=== PATIENT | female | born 1990 | race Caucasian/White ===

== ENCOUNTER 2022-12-22 17:58 | Emergency (ER) | payer OTHER ==
[~2022-12-22] VITALS: Ht 172.7 cm; Wt 82.6 kg
[2022-12-22 18:08] VITALS: BP 110/75; PULSE 84; RESP 16; TEMP 98.2; O2SAT 100
[2022-12-22 18:47] LABS: APPEARANCE,URINE CLEAR (CLEAR); BILIRUBIN,URINE NEGATIVE (NEGATIVE); BLOOD, URINE 1+ (NEGATIVE); COLOR,URINE YELLOW (YELLOW); LEUKOCYTE ESTERASE ,URINE NEGATIVE (NEGATIVE); NITRITE, URINE NEGATIVE (NEGATIVE); PH,URINE 6.5 (5.0-9.0); UGLUCOSE NEGATIVE (NEGATIVE)
[2022-12-22 19:01] LABS: BASOPHILS # (AUTO) 0.1 K/uL (0.00-0.22); BASOPHILS % (AUTO) 0.9 % (0.0-2.0); EOSINOPHILS # (AUTO) 0.2 K/uL (0-0.4); EOSINOPHILS % (AUTO) 2.3 % (0.0-4.0); HEMOGLOBIN 10.2 g/dL (12.0-16.0); LYMPHOCYTES # (AUTO) 2.8 K/uL (2.5-16.5); LYMPHOCYTES % (AUTO) 40.7 % (20.5-51.1); MEAN CORPUSCULAR HEMOGLOBIN 32 pg (27-31); MEAN CORPUSCULAR HGB CONC 34 g/dL (33-37); MEAN CORPUSCULAR VOLUME 92.3 fL (80-94); MONOCYTES # (AUTO) 0.4 K/uL (0.8-1.0); NEUTROPHILS # (AUTO) 3.5 K/uL (1.8-7.7); NEUTROPHILS % (AUTO) 50.1 % (42.2-75.2); PLATELET COUNT (AUTO) 288 K/uL (140-450); RED BLOOD CELL COUNT(AUTO) 3.25 MIL/uL (4.20-5.40); RED CELL DISTRIBUTION WIDTH 14.5 % (11.6-13.7)
--- NOTE | 2022-12-22 20:10 | NUR ---
PT TAKEN TO BED 12
--- NOTE | 2022-12-22 20:45 | NUR ---
Ultrasound at bedside.
[2022-12-22] MEDS ORDERED: FERR325E14 PO (21:58)
[2022-12-22 22:13] VITALS: BP 110/75; PULSE 84; RESP 16; TEMP 98.2; O2SAT 100
--- NOTE | 2022-12-22 22:13 | NUR ---
Patient discharged with v/s stable. Written and verbal after care instructions given and explained. Patient alert, oriented and verbalized understanding of instructions. Ambulatory with steady gait. All questions addressed prior to discharge. ID band removed. Patient advised to follow up with PMD. Rx of FERROUS SULFATE given. Patient educated on indication of medication including possible reaction and side effects. Opportunity to ask questions provided and answered.
== END 2022-12-22 22:13 | disposition home or self-care (01) ==
LOC: MED 17:58
DX: O03.9 Complete or unspecified spontaneous abortion without complication (principal); O99.011 Anemia complicating pregnancy, first trimester; Z3A.10 10 weeks gestation of pregnancy; Z90.49 Acquired absence of other specified parts of digestive tract; Z98.890 Other specified postprocedural states; Z79.899 Other long term (current) drug therapy
CPT/HCPCS: 36415; 76817; 81001; 81025; 84702; 85025; 86900; 86901; 99284; Q0092

== ENCOUNTER 2023-01-22 17:14 | Inpatient (IN) | payer OTHER ==
[~2023-01-22] VITALS: Ht 172.7 cm; Wt 79.8 kg
[~2023-01-22 17:14] MED LIST: FERR325E14 PO
[2023-01-22 18:10] VITALS: BP 124/71; PULSE 76; RESP 20; TEMP 97; O2SAT 100
--- NOTE | 2023-01-22 19:13 | NUR ---
URINE OBTAINED PREG TEST NEG
[2023-01-22 19:29] LABS: BASOPHILS # (AUTO) 0.1 K/uL (0.00-0.22); BASOPHILS % (AUTO) 0.8 % (0.0-2.0); EOSINOPHILS # (AUTO) 0.2 K/uL (0-0.4); EOSINOPHILS % (AUTO) 2.4 % (0.0-4.0); HEMATOCRIT 34.5 % (36-48); HEMOGLOBIN 11.1 g/dL (12.0-16.0); LYMPHOCYTES # (AUTO) 3.2 K/uL (2.5-16.5); LYMPHOCYTES % (AUTO) 37.5 % (20.5-51.1); MEAN CORPUSCULAR HEMOGLOBIN 29 pg (27-31); MEAN CORPUSCULAR HGB CONC 32 g/dL (33-37); MONOCYTES # (AUTO) 0.5 K/uL (0.8-1.0); MONOCYTES % (AUTO) 6.4 % (1.7-9.3); NEUTROPHILS # (AUTO) 4.4 K/uL (1.8-7.7); NEUTROPHILS % (AUTO) 52.9 % (42.2-75.2); PLATELET COUNT (AUTO) 362 K/uL (140-450); RED BLOOD CELL COUNT(AUTO) 3.87 MIL/uL (4.20-5.40); RED CELL DISTRIBUTION WIDTH 13.6 % (11.6-13.7); WHITE BLOOD COUNT (AUTO) 8.4 K/uL (4.8-10.8)
[2023-01-22 19:49] LABS: ALBUMIN 3.4 g/dL (3.4-5.0); ANION GAP 13.9 (8-16); CARBON DIOXIDE 25.9 mmol/L (21-32); CREATININE 0.9 mg/dL (0.6-1.3); POTASSIUM 3.8 mmol/L (3.5-5.1); TOTAL BILIRUBIN 0.1 mg/dL (0.0-1.0)
[2023-01-22] MEDS ORDERED: KETOROLAC 30 MG/ML VIAL IM ONE (20:40)
[2023-01-22] MEDS ORDERED: PIPERACILLIN/TAZOBACTAM 3.375 GM in DEXTROSE 5% 50 ML IV ONE (22:30)
--- NOTE | 2023-01-22 22:31 | NUR ---
PT AMBULATED TO ER BED 2
--- NOTE | 2023-01-22 22:35 | NUR ---
32yo f cc of abdominal pain with nausea and diarrhea x 1 day. denies vomiting, trauma. denies pmhx, allergy. reports she had miscarriage last month. pt resting on bed. a/ox4. not in distress. chest rise and fall symmetrical. on monitor. oriented to call light and within reach. bed locked to lowest position. siderails x2 for safety. placed on moderate high back rest.
[2023-01-22] MEDS ORDERED: MORPHINE SULFATE 4 MG/ML SYR IVP ONE (22:40)
[2023-01-22] MEDS ORDERED: PIPERACILLIN/TAZOBACTAM 3.375 GM VIAL IV ONE (22:41)
[2023-01-22] MEDS ORDERED: ACETAMINOPHEN 325 MG TAB PO PRN (23:40)
[2023-01-22] MEDS ORDERED: ONDANSETRON 4 MG/2 ML VIAL IVP PRN (23:40)
[2023-01-22] MEDS ORDERED: LORazepam 1 MG TAB PO PRN (23:40)
[2023-01-22] MEDS ORDERED: POTASSIUM CHLORIDE 10 MEQ TABER PO PRN (23:40)
[2023-01-22] MEDS ORDERED: MAGNESIUM OXIDE 400 MG TAB PO PRN (23:40)
[2023-01-22] MEDS ORDERED: MORPHINE SULFATE 2 MG/ML SYR IVP PRN (23:40)
[2023-01-22] MEDS ORDERED: HYDROcodone/APAP 5/325 MG 1 TAB TAB PO PRN (23:40)
[2023-01-22] MEDS ORDERED: cefTRIAXone 1,000 MG VIAL ONE (23:51)
[2023-01-22] MEDS: DEXT 5% /NACL 0.9% 1,000 ML IV SCH (23:52)
--- NOTE | 2023-01-23 01:46 | NUR ---
pt resting on bed. a/ox4. not in distress. chest rise and fall symmetrical. on monitor.call light within reach. bed locked to lowest position. siderails x2 for safety. placed on moderate high back rest
--- NOTE | 2023-01-23 03:19 | NUR ---
SPOKE WITH DR. BAJWA. OK TO DOWNGRADE PT TO MED-SURG
--- NOTE | 2023-01-23 03:33 | NUR ---
Patient will be admitted to care of DR. BAJWA. Admited to [facility]. Will go to [facility]. Belongings list completed. Report to SACHI.
[2023-01-23 03:40] VITALS: BP 80/50; PULSE 84; RESP 18; TEMP 98.3; O2SAT 98
--- NOTE | 2023-01-23 03:40 | NUR ---
RECEIVED PT AAOX4 / WHEELCHAIR FROM ER , DENIES PAIN , NAUSEA , VOMITING AT THIS TIME , IV SITE INTACT AND PATENT , ADMISSION ASSESSMENT WILL BE DONE , REMINDS PT NPO EXCEPT MEDS , PT VERBALIZES UNDERSTANDING , ENSURE SAFETY , CALL LIGHT WITHIN SARA CH . BP RE CHECK 80/ 50 , NO COMPLAIN MADE . WILL REFER .
--- NOTE | 2023-01-23 04:30 | NUR ---
BP RE CHECK - NO COMPLAIN MADE , WAITING THE RESPONSE OF DR. CAMARA , CHARGE NURSE INFORMED .
--- NOTE | 2023-01-23 05:10 | NUR ---
BP RE CHECK 81/ , NO COMPLAIN MADE , WILL RE PAGE DR. CAMARA , CHARGE NURSE INFORMED
[2023-01-23 05:30] LABS: BASOPHILS # (AUTO) 0.1 K/uL (0.00-0.22); EOSINOPHILS # (AUTO) 0.2 K/uL (0-0.4); EOSINOPHILS % (AUTO) 2.4 % (0.0-4.0); HEMOGLOBIN 9.1 g/dL (12.0-16.0); LYMPHOCYTES # (AUTO) 3.4 K/uL (2.5-16.5); LYMPHOCYTES % (AUTO) 48.7 % (20.5-51.1); MEAN CORPUSCULAR HEMOGLOBIN 29 pg (27-31); MEAN CORPUSCULAR HGB CONC 33 g/dL (33-37); MEAN CORPUSCULAR VOLUME 90.1 fL (80-94); MONOCYTES # (AUTO) 0.5 K/uL (0.8-1.0); MONOCYTES % (AUTO) 6.5 % (1.7-9.3); NEUTROPHILS # (AUTO) 2.9 K/uL (1.8-7.7); NEUTROPHILS % (AUTO) 41.4 % (42.2-75.2); PLATELET COUNT (AUTO) 277 K/uL (140-450); RED BLOOD CELL COUNT(AUTO) 3.11 MIL/uL (4.20-5.40); RED CELL DISTRIBUTION WIDTH 13.6 % (11.6-13.7); WHITE BLOOD COUNT (AUTO) 7.1 K/uL (4.8-10.8)
[2023-01-23] MEDS ORDERED: NACL 0.9% 1,000 ML IV ONE (05:35)
--- NOTE | 2023-01-23 05:35 | NUR ---
ORDERED BY DR. CAMARA NSS 1 LITER BOLUS NOW - PER COMMAND OF CHARGE NURSE MAURICIO GIVE NSS 1 LITER BOLUS NOW AND SHE WILL PUT THE ORDER - WILL CARRY OUT .
[2023-01-23 05:58] LABS: ANION GAP 10.9 (8-16); CARBON DIOXIDE 26.4 mmol/L (21-32); CREATININE 0.9 mg/dL (0.6-1.3); POTASSIUM 3.3 mmol/L (3.5-5.1)
--- NOTE | 2023-01-23 06:00 | NUR ---
PENDING METRONIDAZOLE TIV , NSS BOLUS ONGOING , FOR CLOSELY WATCH .
--- NOTE | 2023-01-23 07:06 | NUR ---
receive the patient from the casino shift manager rn in rm 125BA admitting diagnosis acute appendicitis . will continue to monitor
--- NOTE | 2023-01-23 07:10 | NUR ---
BP RE CHECK /51 - PAGED DR. ROSE - I GAVE THE NAME ERMA DASH THE HE THE ONE WILL RECEIVE THE RETURN CALL OF EKTA DELGADO RN VERBALIZES UNDERSTANDING
--- NOTE | 2023-01-23 07:30 | NUR ---
PER PHARMACIST GIVE METRONIDAZOLE TIV NOW - WILL CARRY OUT .
[2023-01-23] MEDS: metroNIDAZOLE 500 MG/NS PREMIX 100 ML IV SCH ×3 (07:32→22:04)
--- NOTE | 2023-01-23 07:40 | NUR ---
ENDORSED PT BP 84 /52 - EKTA RN AWARE THAT PT IS ON CLOSELY WATCH , EKTA RN VERBALIZES UNDERSTANDING . PT IS AWAKE , NO COMPLAIN MADE , CALL LIGHT WITHIN REACH .
[2023-01-23] MEDS ORDERED: NACL 0.9% 1,000 ML IV SCH (07:50)
[2023-01-23 08:00] VITALS: BP 88/51; PULSE 58; RESP 18; TEMP 97.1; O2SAT 97
[2023-01-23 08:03] VITALS: PULSE 84
--- NOTE | 2023-01-23 08:57 | NUR ---
PATIENT HAS BEEN SCREENED AND CATEGORIZED LOW NUTRITION RISK. PATIENT WILL BE SEEN WITHIN 7 DAYS OF ADMISSION. 01/30/[address]
[2023-01-23] MEDS: DOCUSATE SODIUM 100 MG GELCAP PO SCH (09:00)
[2023-01-23] MEDS: ENOXAPARIN 40 MG/0.4 ML SYR SUBQ SCH (09:11)
[2023-01-23] MEDS: DEXT 5% /NACL 0.9% 1,000 ML IV SCH (12:00)
--- NOTE | 2023-01-23 12:30 | NUR ---
Md collazo surgeon made rounds . read the results of computed tomography of the abdomen and pelvis recommended antibiotic therapy before invasive procedure
--- NOTE | 2023-01-23 12:30 | NUR ---
Md Finch prescribe clear liquid diet
--- NOTE | 2023-01-23 13:16 | NUR ---
DC PLANNING A 5O YEAR OLD FEMALE PATIENT ADMITTED IN MED SURG FOR SEVERE RIGHT LOWER QUADRANT ABDOMINAL PAIN 1 DAY SMELTER CHARGER.PATIENT HAS NO SIGNIFICANT MEDICAL HX.CT SHOWS NON PERFORATED APPENDICITIS.CASE DISCUSSED BY ER TO GEN SURGERY,.ON ROCEPHIN AND FLAGYL.CN TO FOLLOW UP CX WITH .CM TO FOLLOW. Addendum: 01/25/23 at 1225 by DAWIT EDMONDS CM DC PLANNING PATIENT IS ALERT AND ORIENTED.S/P LAPAROSCOPIC EXTENSIVE LYSIS OF ADHESIONS AND APPENDECTOMY LAST NIGHT. ON ROCEPSANDHYA AND FLAGYL.HIDA SCAN REQUESTED DUE TO REPEAT CT ANGIOGRAM ABDOMEN/PELVIS THAT SHOWS POSSIBLE CHOLECYSTITIS .CM TO FOLLOW
[2023-01-23 16:00] VITALS: BP 100/56; PULSE 59; RESP 18; TEMP 97.1; O2SAT 97
--- NOTE | 2023-01-23 18:51 | NUR ---
will endorse to night supervisor rn for continuity of care . for monitoring for acute appendicitis . for antibiotics . no invasive procedure at this time
[2023-01-23 20:00] VITALS: PULSE 75; RESP 18; O2SAT 98
--- NOTE | 2023-01-23 23:00 | NUR ---
c/o pain , bp 110/60 , rr 18 , o2 sat 98 % , hr 66 - will medicate
[2023-01-24] VITALS: BP 112/60; PULSE 60; RESP 18; TEMP 98.5; O2SAT 98
--- NOTE | 2023-01-24 | NUR ---
rounds , no s/sx of acute distress noted , will cont. to monitor
[2023-01-24] MEDS: DEXT 5% /NACL 0.9% 1,000 ML IV SCH ×2 (01:17→12:31)
--- NOTE | 2023-01-24 02:00 | NUR ---
rounds , no complain made , will cont. to monitor
--- NOTE | 2023-01-24 04:00 | NUR ---
rounds no s/sx of acute distress noted , will cont. to monitor
[2023-01-24 05:28] LABS: BASOPHILS # (AUTO) 0.1 K/uL (0.00-0.22); BASOPHILS % (AUTO) 0.8 % (0.0-2.0); EOSINOPHILS # (AUTO) 0.3 K/uL (0-0.4); EOSINOPHILS % (AUTO) 4.4 % (0.0-4.0); HEMATOCRIT 28.7 % (36-48); HEMOGLOBIN 9.3 g/dL (12.0-16.0); LYMPHOCYTES % (AUTO) 43.4 % (20.5-51.1); MEAN CORPUSCULAR HEMOGLOBIN 29 pg (27-31); MEAN CORPUSCULAR HGB CONC 33 g/dL (33-37); MEAN CORPUSCULAR VOLUME 89.4 fL (80-94); MONOCYTES # (AUTO) 0.4 K/uL (0.8-1.0); MONOCYTES % (AUTO) 6.1 % (1.7-9.3); NEUTROPHILS # (AUTO) 3.2 K/uL (1.8-7.7); NEUTROPHILS % (AUTO) 45.3 % (42.2-75.2); PLATELET COUNT (AUTO) 289 K/uL (140-450); RED BLOOD CELL COUNT(AUTO) 3.21 MIL/uL (4.20-5.40); RED CELL DISTRIBUTION WIDTH 13.5 % (11.6-13.7)
[2023-01-24 05:45] LABS: ANION GAP 11.2 (8-16); CARBON DIOXIDE 22.7 mmol/L (21-32); CREATININE 0.7 mg/dL (0.6-1.3); POTASSIUM 3.9 mmol/L (3.5-5.1)
--- NOTE | 2023-01-24 06:00 | NUR ---
awake , no complain made , will cont. to monitor , call mike asencio .
[2023-01-24] MEDS: metroNIDAZOLE 500 MG/NS PREMIX 100 ML IV SCH ×3 (06:28→21:00)
[2023-01-24 08:00] VITALS: BP 98/49; PULSE 65; RESP 18; TEMP 97.8; O2SAT 98
--- NOTE | 2023-01-24 08:00 | NUR ---
endorsed for cont. of care , call light within reach .
--- NOTE | 2023-01-24 08:30 | NUR ---
receive the patient from the charge nurse Chasity in rm 125A admitting diagnosis of acute appendicitis . for antibiotic therapy . will continue to monitor
--- NOTE | 2023-01-24 08:30 | NUR ---
receive the patient from Chasity charge nurse in rm 115 admitting diagnosis bilateral lower extremity cellulitis . for antibiotics and pain mgt . 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 will continue to monitor Addendum: 01/24/23 at 1717 by MALENA BUSTAMANTE RN wrong patient
[2023-01-24 09:00] VITALS: PULSE 73; RESP 20; O2SAT 99
[2023-01-24] MEDS: ENOXAPARIN 40 MG/0.4 ML SYR SUBQ SCH (10:21)
[2023-01-24] MEDS: DOCUSATE SODIUM 100 MG GELCAP PO SCH (10:21)
[2023-01-24 16:00] VITALS: BP 97/50; PULSE 63; RESP 18; TEMP 98; O2SAT 98
--- NOTE | 2023-01-24 18:10 | NUR ---
spoken with Md Finch re appendectomy . made pre operative checklist . made pre operative teaching with patient
--- NOTE | 2023-01-24 19:09 | NUR ---
will endorse to shift foreman rn for continuity of care . for appendectomy with Md Finch
--- NOTE | 2023-01-24 19:10 | NUR ---
will endorse to production supervisor off shift rn for continuity of care . for MRCP tomorrow in [facility] Addendum: 01/26/23 at 1350 by MALENA BUSTAMANTE RN WRONG PATIENT
[2023-01-24 20:00] VITALS: PULSE 61; RESP 18; O2SAT 96
[2023-01-24] MEDS ORDERED: BUPIVACAINE-MPF/EPI 0.25% 10 ML VIAL INJ ONE (20:52)
[2023-01-24] MEDS ORDERED: ONDANSETRON 4 MG/2 ML VIAL ONE (21:00)
[2023-01-24] MEDS ORDERED: DEXAMETHASONE 4 MG/ML VIAL ONE ×2 (21:00→21:19)
[2023-01-24] MEDS ORDERED: SUCCINYLCHOLINE CHLORIDE 200 MG/10 ML VIAL IVP ONE ×2 (21:00→21:20)
[2023-01-24] MEDS ORDERED: KETOROLAC 30 MG/ML VIAL ONE ×2 (21:00→21:19)
[2023-01-24] MEDS ORDERED: SUGAMMADEX SODIUM 200 MG/2 ML VIAL IV ONE ×2 (21:00→21:32)
[2023-01-24] MEDS ORDERED: fentaNYL citrate 0.05 MG/ML - 50mL vial IV ONE (21:00)
[2023-01-24] MEDS ORDERED: ROCURONIUM 50 MG/5 ML VIAL IV ONE ×2 (21:00→21:19)
[2023-01-24] MEDS ORDERED: HYDROmorphone 1 MG/ML AMP ONE (21:00)
[2023-01-24] MEDS ORDERED: DEFEROXAMINE 500 MG VIAL ONE (21:00)
[2023-01-24] MEDS ORDERED: PROPOFOL 200 MG/20 ML VIAL IV ONE ×2 (21:00→21:20)
[2023-01-24] MEDS ORDERED: fentaNYL citrate 0.05 MG/ML VIAL ONE (21:27)
[2023-01-24] MEDS ORDERED: HYDROmorphone PFS 2 MG/ML SYR ONE ×2 (21:33→22:37)
[2023-01-24] MEDS: HYDROmorphone 1 MG/ML AMP IVP PRN ×2 (22:40→22:50)
--- NOTE | 2023-01-24 23:00 | NUR ---
BACK FROM PACU - WILL CONT. TO MONITOR , AROUSABLE , NO S/SX OF ACUTE DISTRESS NOTED AT THIS TIME , AAOX4 .
--- NOTE | 2023-01-24 23:15 | NUR ---
BP 100 / 60 , RR 18 , O2 SAT 99 % , KS 60 , T 98.0 F , AAOX4 , 0 PAIN .
[2023-01-25] VITALS: BP 108/60; PULSE 61; RESP 18; TEMP 98.3; O2SAT 94
--- NOTE | 2023-01-25 | NUR ---
BP 100 /62 , NC 66 , RR 18 , O2 SAT 99 % - 0 PAIN .
--- NOTE | 2023-01-25 00:30 | NUR ---
BP 100 / 61 , OH 59 , RR 18 , O2 SAT 100 % , 0 PAIN
[2023-01-25] MEDS: DEXT 5% /NACL 0.9% 1,000 ML IV SCH ×2 (01:06→14:55)
--- NOTE | 2023-01-25 04:00 | NUR ---
AWAKE , NO S/SX OF ACUTE DISTRESS NOTED , WILL CONT. TO MONITOR
--- NOTE | 2023-01-25 05:00 | NUR ---
WALKS TO THE RESTROOM , W/O DIZZINESS , NO COMPLAIN AT THIS TIME , VOIDED FREELY , WILL CONT. TO MONITOR .
[2023-01-25] MEDS: metroNIDAZOLE 500 MG/NS PREMIX 100 ML IV SCH ×2 (05:32→13:24)
[2023-01-25 05:56] LABS: BASOPHILS # (AUTO) 0.1 K/uL (0.00-0.22); BASOPHILS % (AUTO) 0.6 % (0.0-2.0); HEMATOCRIT 31.4 % (36-48); LYMPHOCYTES # (AUTO) 0.6 K/uL (2.5-16.5); LYMPHOCYTES % (AUTO) 7.4 % (20.5-51.1); MEAN CORPUSCULAR HEMOGLOBIN 29 pg (27-31); MEAN CORPUSCULAR HGB CONC 32 g/dL (33-37); MEAN CORPUSCULAR VOLUME 89.9 fL (80-94); MONOCYTES # (AUTO) 0.1 K/uL (0.8-1.0); MONOCYTES % (AUTO) 1.5 % (1.7-9.3); NEUTROPHILS # (AUTO) 7.9 K/uL (1.8-7.7); NEUTROPHILS % (AUTO) 90.5 % (42.2-75.2); PLATELET COUNT (AUTO) 315 K/uL (140-450); RED CELL DISTRIBUTION WIDTH 13.6 % (11.6-13.7); WHITE BLOOD COUNT (AUTO) 8.8 K/uL (4.8-10.8)
[2023-01-25 06:09] LABS: ANION GAP 10.7 (8-16); CARBON DIOXIDE 26.2 mmol/L (21-32); CREATININE 0.8 mg/dL (0.6-1.3); POTASSIUM 3.9 mmol/L (3.5-5.1)
--- NOTE | 2023-01-25 07:30 | NUR ---
RECEIVED PT FROM DRAW STRING KNOTTER FOR CONTINUITY OF CARE. ALERT AND ORIENTED X 4. RESP. EVEN AND UNLABORED. IVF INFUSING WELL. NO C/O PAIN OR DISCOMFORT. CALL LIGHT KEPT WITHIN REACH. WILL CONTINUE TO MONITOR.
--- NOTE | 2023-01-25 07:42 | NUR ---
ENDORSED FOR CONT. OF CARE
[2023-01-25 08:00] VITALS: BP 97/49; PULSE 65; RESP 18; TEMP 97.9; O2SAT 100
[2023-01-25] MEDS: DOCUSATE SODIUM 100 MG GELCAP PO SCH (08:36)
--- NOTE | 2023-01-25 08:36 | NUR ---
SCHEDULED MEDICATIONS GIVEN. TOLERATED WELL.
[2023-01-25] MEDS: ENOXAPARIN 40 MG/0.4 ML SYR SUBQ SCH (08:38)
--- NOTE | 2023-01-25 09:33 | NUR ---
SEEN BY DR. ROSE.
--- NOTE | 2023-01-25 13:50 | NUR ---
PT OFF UNIT FOR HIDA SCAN.
[2023-01-25 16:00] VITALS: BP 100/50; PULSE 69; RESP 19; TEMP 97.1; O2SAT 98
--- NOTE | 2023-01-25 16:00 | NUR ---
PT RETURN FROM HIDA SCAN.
--- NOTE | 2023-01-25 16:30 | NUR ---
DR. ROSE NOTIFIED HIDA SCAN RESULT PENDING. PER IF HIDA SCAN NEGATIVE MAY DISCHARGE. PT AND MADE AWARE.
--- NOTE | 2023-01-25 19:20 | NUR ---
REPORT GIVEN TO 1ST GRADE TEACHER FOR CONTINUITY OF CARE. REMAINS STABLE.
--- NOTE | 2023-01-25 20:19 | NUR ---
PER ENDORSE TO ME BY DAMIR CLEMONS THE DOCTOR WAITING THE RESULT OF HIDA SCAN - ONCE THE RESULT IS NEGATIVE THE DOCTOR WILL DISCHARGE PT. HOME .
--- NOTE | 2023-01-25 21:20 | NUR ---
PT'S SAYS THEY WAITING THE HIDA SCAN RESULT TOO LONG TIME . I REVIEWED THE IMAGING BUT THE HIDA SCAN STILL NO RESULT YET UNTIL UP TO THIS TIME . I ASKED MY CHARGE NURSE MAURICIO ABOUT THIS MATTER , I SUGGESTINGT Elgin MARTÍNEZ IF THE RESULT IS NOT YET IN TILL 12 MN , I WILL SAY TO THE PT. AND PT'S TO STAY HERE OVERNIGHT UNTIL ZENIA .
--- NOTE | 2023-01-25 21:30 | NUR ---
I INFORM THE PT. IF TILL 12MN STILL NO RESULT OF HIDA SCAN YET SHE HAVE TO STAY HERE TILL ZENIA AM UNTIL THE DOCTOR DISCHARGE HER ZENIA . PT VERBALIZES UNDERSTANDING . PT REQUESTING TO REMOVE THE IV NEEDLE SHE SAID IT HURTS - INFILTRATED IV SITE . WILL REMOVE THE NEEDLE . I INFORMING THE PT SHE NEED FOR ANOTHER IV NEEDLE RE INSERTION . BUT PT REFUSING FOR IV RE INSERTION , WILL CONT. TO MONITOR .
--- NOTE | 2023-01-25 21:33 | NUR ---
IV NEEDLE REMOVED , IV NEEDLE INTACT , MIN. BLEEDING , WILL CONT. TO MONITOR .
--- NOTE | 2023-01-25 23:00 | NUR ---
WHILE I'M DOING MY COMPUTER DOCUMENTATION , SITTING IN THE NURSE'S STATION . PT APPROACH TO ME AND SHE WANTS TO KNOW IF THE RESULT OF HIDA SCAN IN . BUT UNTIL THIS TIME NO HIDA SCAN RESULT YET . PT ASKING IS THERE IS A WAY I MAY DO SO THAT I WILL GO HOME TONIGHT ? OR ANY WAIVER OR PAPER HAVE TO SIGN THAT ALLOW ME TO GO HOME ? I 'M WILLING TO SIGN . I APPROACH MY CHARGE NURSE ABOUT THIS MATTER AND MY CHARGE NURSE IF SHE REALLY WANTS TO GO HOME TONIGHT SHE MAY SIGN AMA .
--- NOTE | 2023-01-25 23:01 | NUR ---
DISCUSSING AMA AND THE CONSEQUENCES OF AMA TO THE PT . PT VERBALIZED UNDERSTANDING AND SHE SAID WILLING TO SIGN THE AMA WAIVER .
--- NOTE | 2023-01-25 23:06 | NUR ---
AMA WAIVER SIGNED BY THE PT . 3 SURGICAL INCISSIONS DRY AND INTACT , DENIES ANY PAIN AT THIS TIME , T 98.6 F , RR 18 , MO 66 , BP 101/62 , O2 SAT 99 %.
--- NOTE | 2023-01-25 23:10 | NUR ---
PT DISCHARGED AMA , AMBULATORY , ACCOMPANIED BY . CHARGE NURSE MAURICIO REMINDS PT . AND PT'S ABOUT RADIATION ISOLATION . PT. AND PT'S VERBALIZED UNDERSTANDING . INFORMED DR. ROSE AND DR. CASTELLANO PT DISCHARGED AMA . Addendum: 01/26/23 at 0125 by Susana Garcia RN AT 2319 DR. ROSE TEXTBACK - PER DR. ROSE THAT'S FINE JUST MAKE SURE SHE HAS DR. CASTELLANO[facility]S CLIN[facility] INFO AND FOLLOW UP WITH HIM IN 2 WEEKS . Addendum: 01/26/23 at 0128 by Susana Garcia RN AT 2320 TRIED TO REACH PT'S ( IRRIGATIONIST) [phone] - BUT NO ANSWER , ONLY AUTOMATIC VOICE MSG - LEFT MSG ABOUT PT HAVE TO FOLLOW UP CHECK UP AT DR. CASTELLANO[facility]S [facility] .
== END 2023-01-25 23:10 | disposition left against medical advice (07) | DRG 224 ==
LOC: MED 17:14 → MMU 23:39 → INTOOBSV 23:39 → MMU 01-23 00:08 → UNDOADMIN 01-23 00:08 → MMU 01-23 03:25 → OBSVTOIN 01-23 07:00
PROVIDERS: ADMIT Student in an Organized Health Care Education/Training Program; ATTEND Student in an Organized Health Care Education/Training Program
PROC: 0DNW0ZZ Release Peritoneum, Open Approach (ICD-10-PCS; 2023-01-24)
PROC: 0DTJ0ZZ Resection of Appendix, Open Approach (ICD-10-PCS; principal; 2023-01-24 20:00)
DX: K35.80 Unspecified acute appendicitis (principal); E44.1 Mild protein-calorie malnutrition; E66.9 Obesity, unspecified; Z53.29 Procedure and treatment not carried out because of patient's decision for other reasons; K66.0 Peritoneal adhesions (postprocedural) (postinfection); Z68.26 Body mass index [BMI] 26.0-26.9, adult; Z90.710 Acquired absence of both cervix and uterus
CPT/HCPCS: 96365; 96372; 96375; 99285; G0378; 36415; 76830; 78445; 80048; 80053; 82374; 83605; 83690; 85025; 87040; 87070; 87075; 87081; 87205; 88304; J0330; J0696; J0895; J1100; J1170; J1650; J1885; J2270; J2405; J2543; J2704; J3010; J3490; J7060; J7120; Q9967